=== PATIENT | female | born 1975 | race Caucasian/White ===

== ENCOUNTER 2023-02-19 05:23 | Day surgery (SDC) | payer OTHER ==
[2023-02-11 15:56] LABS: BASOPHILS # (AUTO) 0.1 X10'3 (0-0.2); EOSINOPHILS % (AUTO) 0.1 % (0-6); MONOCYTES # (AUTO) 0.5 X10'3 (0-0.9)
[2023-02-11 16:10] LABS: ALBUMIN/GLOBULIN RATIO 1.1 (1.1-1.5); ALKALINE PHOSPHATASE 109 IU/L (46-116); BLOOD UREA NITROGEN 11 MG/DL (7-18); BUN/CREATININE RATIO 13.9 (10.0-20.0); CALCIUM 9.1 MG/DL (8.5-10.1); CHLORIDE 101 MMOL/L (99-107); CREATININE 0.79 MG/DL (0.40-0.90); PRE OP ALT 18 U/L (30-65); PRE OP ANION GAP 12 (8-16); PRE OP AST 18 U/L (10-37); PRE OP BILIRUB, TOTAL 0.3 MG/DL (0.0-1.0); PRE OP GLUCOSE 151 MG/DL (70-104); PRE OP POTASSIUM 3.7 MMOL/L (3.4-5.1); PRE OP SODIUM 138 MMOL/L (135-145); TOTAL CARBON DIOXIDE 25.4 MMOL/L (24-32); TOTAL PROTEIN 7.8 G/DL (6.4-8.2); eGFR 77 ML/MIN
[2023-02-11 16:48] LABS: MEAN CORPUSCULAR HEMOGLOBIN 19.6 PG (27.0-31.0); MEAN CORPUSCULAR HGB CONC 30.6 g/dL (33.0-36.5); PRE OP HEMOGLOBIN 9.5 g/dL (12.0-16.0); RED BLOOD COUNT 4.84 X10'6 (4.20-5.60)
[2023-02-11 16:49] LABS: LYMPHOCYTES % (AUTO) 15.3 % (21-51); MEAN PLATELET VOLUME 8.5 FL (7.4-10.4); MONOCYTES % (AUTO) 4.6 % (2-12); NEUTROPHILS % (AUTO) 79.5 % (42-75); PRE OP PLATELET COUNT 428 X10'3 (140-440)
[2023-02-11 16:50] LABS: BASOPHILS % (AUTO) 0.5 % (0-1); LYMPHOCYTES # (AUTO) 1.7 X10'3 (1.1-4.8); NEUTROPHILS # (AUTO) 8.8 X10'3 (1.8-7.7)
[2023-02-11 17:38] LABS: PLATELET ESTIMATE NORMAL
[2023-02-11 17:39] LABS: HYPOCHROMASIA 1+
[2023-02-11 17:40] LABS: ANISOCYTOSIS 2+; ELLIPTOCYTES 1+; MICROCYTOSIS 2+; POIKILOCYTOSIS 1+
[2023-02-19] VITALS (25 sets, daily range): BP systolic 128–167; BP diastolic 68–103
[~2023-02-19] VITALS: Ht 167.6 cm; Wt 117.0 kg
[~2023-02-19 05:23] MED LIST: PANT-47 PO; SERT-434 PO; ringers solution, lacted 1,000 ML IV SCH
[2023-02-19] MEDS ORDERED: cefazolin 2gm/D5W 100mL 100 ML IV ONE (05:30)
[2023-02-19] MEDS ORDERED: vancomycin 1,500 MG in NS 300ml IV soln IV ONE (05:30)
[2023-02-19] MEDS ORDERED: gabapentin 300mg capsule PO ONE (05:30)
[2023-02-19] MEDS ORDERED: acetaminophen 325mg tablet PO ONE (05:30)
[2023-02-19] MEDS ORDERED: metoclopramide 5 mg/ml inj IV ONE (05:30)
[2023-02-19] MEDS ORDERED: tranexamic acid inj. 1,000 MG in normal saline IV soln 100ML IV ONE (05:30)
[2023-02-19] MEDS ORDERED: celeCOXIB 100mg capsule PO ONE (05:30)
[2023-02-19] MEDS ORDERED: famotidine 20mg tablet PO ONE (05:30)
[2023-02-19] MEDS ORDERED: oxyCODONE SR 10mg (sust. release) tab -2 tabs (20mg) PO ONE (05:30)
[2023-02-19] MEDS ORDERED: HYDROmorphone inj. 0.5 MG/0.5 ML DISP.SYRIN IV PRN (06:35)
[2023-02-19] MEDS ORDERED: diphenhydrAMINE 25mg capsule PO PRN ×2 (06:35)
[2023-02-19] MEDS ORDERED: ondansetron/PF 4mg/2ml inj IV PRN ×2 (06:35→07:30)
[2023-02-19] MEDS ORDERED: bisacodyl 10mg suppository rectal RC PRN (06:35)
[2023-02-19] MEDS ORDERED: magnesium hydroxide 30ml (MOM) UD suspension PO PRN (06:35)
[2023-02-19] MEDS ORDERED: HYDROcodone/acetaminophen 10/325mg tab PO PRN (06:35)
[2023-02-19] MEDS ORDERED: acetaminophen 325mg tablet PO PRN (06:35)
[2023-02-19] MEDS ORDERED: naloxone 0.4 mg/ml inj IV PRN (06:35)
[2023-02-19] MEDS ORDERED: ROPIVAcaine 0.5% (5mg/ml) 30ml vial ONE (06:46)
[2023-02-19] MEDS ORDERED: cloNIDine hcl/PF 100mcg/ml inj ONE (06:49)
[2023-02-19] MEDS ORDERED: epiNEPHrine 1 mg/ml inj ONE (06:49)
[2023-02-19] MEDS ORDERED: ketorolac trometh. 30mg/ml inj. ONE (06:49)
--- NOTE | 2023-02-19 07:05 | NUR ---
PATIENT HAS SEEN VIDEO NO OINTMENT PEDAL PULSES MARKED CSM INTACT
[2023-02-19] MEDS ORDERED: vancomycin 1,000mg inj ONE (07:14)
[2023-02-19] MEDS ORDERED: fentaNYL/PF 50MCG/1 ML 2ML syringe ONE (07:17)
[2023-02-19] MEDS ORDERED: MIDAZolam 1 MG/ML 5ML VIAL ONE (07:18)
[2023-02-19] MEDS ORDERED: ringers solution, lacted 1,000 ML IV SCH (07:30)
[2023-02-19] MEDS ORDERED: ROPIVAcaine 0.2% (10 MG/5 ML) BOLUS INJECTION ADDCANAL PRN (07:30)
[2023-02-19] MEDS ORDERED: meperidine/PF 25mg/ml syringe IV PRN ×3 (07:30)
[2023-02-19] MEDS ORDERED: proCHLORperazine 10 MG/2 ml inj IV PRN (07:30)
[2023-02-19] MEDS ORDERED: morphine 2 MG/ML inj. syringe IV PRN (07:30)
[2023-02-19] MEDS ORDERED: ROPIVAcaine 0.2%/PF PUMP/bolus 545 ML ADDCANAL SCH (07:30)
[2023-02-19] MEDS ORDERED: morphine 4 MG/ML inj SYRINge IV PRN (07:30)
[2023-02-19] MEDS ORDERED: ceFAZolin/D5W- 1GM premix 50 ML IV SCH (08:00)
[2023-02-19] MEDS ORDERED: propofol inj 20 ML IV ONE ×2 (08:19→09:08)
[2023-02-19] MEDS ORDERED: LIDOcaine 1%/PF 5ML 10 MG/ML VIAL ONE (08:19)
[2023-02-19] MEDS ORDERED: epiNEPHrine 1 MG/ML 1 ml ampule **BRONCH ONLY SQ ONE (08:24)
[2023-02-19] MEDS ORDERED: ketorolac trometh. 30mg/ml inj. IV ONE (08:27)
[2023-02-19] MEDS ORDERED: cloNIDine hcl/PF 100mcg/ml inj EP ONE (08:27)
[2023-02-19] MEDS ORDERED: ROPIVAcaine 0.5% (5mg/ml) 30ml vial IJ ONE (08:27)
[2023-02-19] MEDS ORDERED: diphenhydrAMINE 50 mg/ml inj ONE (09:08)
--- NOTE | 2023-02-19 09:23 | NUR ---
Received from OR via , accompanied by Anesthesiologist JEANE AND OR NURSE and report given by Anesthesiolgist. PT IS DROWSY YET ABLE TO FOLLOW VERBAL COMMANDS. PWDR PACK SLING NOT IN PLACE. MICHAEL DRESSING IN PLACE WITH CASSETTE. OR NURSE NOTIFIED. 20G TO LT AC. PT WITH SHIVERS; DEMEROL GIVEN. VSS Addendum: 02/19/23 at 1045 by Neva Winters RN Amended: Links added.
--- NOTE | 2023-02-19 11:42 | NUR ---
Received patient to room 4023B escorted by x2 staff and spouse. Patient alert and oriented c/o pain to right knee. Right knee koki dressing CDI, powder cold pack in place with right knee wrap. SCD's on. Oriented room and call light. Bed low and locked, call light within reach.
--- NOTE | 2023-02-19 11:43 | NUR ---
PATIENT TAKEN TO ORTHO FLOOR ROOM WITH ALL BELONGINGS AND HOOKED UP TO ALL MONITORS IN ROOM AND REPORT GIVEN TO RN WHO HAS TAKEN OVER PATIENT CARE. FAMILY AT BEDSIDE Addendum: 02/19/23 at 1157 by Neva Winters RN Amended: Links added.
[2023-02-19] MEDS: HYDROmorphone 1 mg/ml syringe IV PRN ×3 (11:52→22:12)
[2023-02-19] MEDS ORDERED: tranexamic acid inj. 1,000 MG in normal saline 100ml IV soln 90 ML IV ONE (12:00)
[2023-02-19] MEDS: HYDROcodone/acetaminophen 10/325mg tab PO PRN (13:58)
[2023-02-19] MEDS ORDERED: ceFAZolin inj. 3,000 MG in normal saline 100ml IV soln 100 ML IV SCH (16:00)
[2023-02-19] MEDS: ceFAZolin inj. 3,000 MG in normal saline 100ml IV soln 100 ML IV SCH ×2 (16:05→23:05)
--- NOTE | 2023-02-19 18:00 | NUR ---
Patient in room ORTHO 4023. I have received report from REENA Curiel and had the opportunity to ask questions and assume patient care.
--- NOTE | 2023-02-19 18:07 | NUR ---
Problems reprioritized. Patient report given, questions answered & plan of care reviewed with REENA Good.
[2023-02-19] MEDS: potassium cl 20mEq in 1/2 NS 1,000 ML IV SCH ×2 (19:50→20:50)
[2023-02-19] MEDS ORDERED: vancomycin inj 1,750 MG in normal saline 500ml IV soln 350 ML IV ONE (20:00)
[2023-02-19] MEDS: gabapentin 300mg capsule PO SCH (20:45)
[2023-02-19] MEDS: ascorbic acid 500mg tablet PO SCH (20:46)
[2023-02-19] MEDS ORDERED: sennosides 8.6mg tablet PO SCH (21:00)
[2023-02-19] MEDS ORDERED: pantoprazole 40mg Tablet.DR PO SCH (21:00)
[2023-02-20] MEDS: HYDROcodone/acetaminophen 10/325mg tab PO PRN ×3 (00:51→10:12)
[2023-02-20 02:00] VITALS: BP 122/60
[2023-02-20] MEDS: potassium cl 20mEq in 1/2 NS 1,000 ML IV SCH ×2 (03:00→11:00)
[2023-02-20 06:00] VITALS: BP 129/56
--- NOTE | 2023-02-20 06:30 | NUR ---
Problems reprioritized. Patient report given, questions answered & plan of care reviewed with Last Mata.
--- NOTE | 2023-02-20 06:30 | NUR ---
Patient in room ORTHO 4023. I have received report from Latisha VALLES and had the opportunity to ask questions and assume patient care.
[2023-02-20 07:38] LABS: BASOPHILS # (AUTO) 0.1 X10'3 (0-0.2); BASOPHILS % (AUTO) 0.6 % (0-1); EOSINOPHILS % (AUTO) 0.4 % (0-6); HEMATOCRIT 28.2 % (35.0-45.0); HEMOGLOBIN 8.6 g/dl (12.0-16.0); LYMPHOCYTES # (AUTO) 2.8 X10'3 (1.1-4.8); LYMPHOCYTES % (AUTO) 28.2 % (21-51); MEAN CORPUSCULAR HEMOGLOBIN 20.3 PG (27.0-31.0); MEAN CORPUSCULAR HGB CONC 30.6 g/dL (33.0-36.5); MEAN CORPUSCULAR VOLUME 66.3 FL (78-98); MEAN PLATELET VOLUME 8.6 FL (7.4-10.4); MONOCYTES # (AUTO) 0.8 X10'3 (0-0.9); MONOCYTES % (AUTO) 8.3 % (2-12); NEUTROPHILS # (AUTO) 6.3 X10'3 (1.8-7.7); NEUTROPHILS % (AUTO) 62.5 % (42-75); PLATELET COUNT 308 X10'3 (140-440); RED BLOOD COUNT 4.25 X10'6 (4.20-5.60); RED CELL DISTRIBUTION WIDTH 18.8 % (11.5-14.5); WHITE BLOOD COUNT 10.1 X10'3 (4.5-11.0)
[2023-02-20 07:47] LABS: ANION GAP 5 (8-16); CHLORIDE 104 MMOL/L (99-107); POTASSIUM 3.6 MMOL/L (3.5-5.1); SODIUM 138 MMOL/L (135-145); TOTAL CARBON DIOXIDE 28.7 MMOL/L (24-32)
[2023-02-20] MEDS: gabapentin 300mg capsule PO SCH (07:47)
[2023-02-20] MEDS: ascorbic acid 500mg tablet PO SCH (07:47)
[2023-02-20] MEDS ORDERED: cefazolin 2gm/D5W 100mL 100 ML IV SCH (08:00)
[2023-02-20] MEDS ORDERED: sertraline 50mg tablet PO SCH (08:00)
[2023-02-20] MEDS ORDERED: multivitamins, therapeutics tablet PO SCH (08:00)
[2023-02-20] MEDS ORDERED: aspirin 325mg tablet PO SCH (08:30)
[2023-02-20 10:00] VITALS: BP 155/80
--- NOTE | 2023-02-20 11:04 | NUR ---
Per EMR pt s/p right TKA, discharging at this time. Written protein education with ONS coupons and RD contact information mailed to patient's home address found in EMR. Will remain available. Addendum: 02/20/23 at [address] Amended: Links added.
--- NOTE | 2023-02-20 11:45 | NUR ---
Pt dc to home via private vehicle accompanied by and aunt. Pt VSS, alert, oriented, and appropriate. Pt and both verbally agreeable and understanding to all DC instructions and educations provided, specifically regarding MICHAEL dressing and ON-Q pump. PIV dc with no complications, no s/sx of infection or infiltration noted. All belongings accounted for at time of dc.
--- NOTE | 2023-02-20 13:45 | NUR ---
TRAFFIC TECHNICIAN documentation: I have reviewed and agree with all interventions, assessments performed and documented by Esperanza Fernandes LVN.
[2023-02-20] MEDS ORDERED: celeCOXIB 100mg capsule PO SCH (20:00)
== END 2023-02-20 11:45 | disposition home or self-care (01) ==
LOC: PAS 05:23 → ORTHO 4S 12:00 → UNDOADMIN 12:00 → ORTHO 4S 02-20 10:49 → PAS 02-20 11:45
PROVIDERS: ATTEND Orthopaedic Surgery
DX: M17.11 Unilateral primary osteoarthritis, right knee (principal); M21.161 Varus deformity, not elsewhere classified, right knee; F41.9 Anxiety disorder, unspecified; I10 Essential (primary) hypertension; K21.9 Gastro-esophageal reflux disease without esophagitis; E66.01 Morbid (severe) obesity due to excess calories; Z68.39 Body mass index [BMI] 39.0-39.9, adult; F42.9 Obsessive-compulsive disorder, unspecified; F43.10 Post-traumatic stress disorder, unspecified; G89.18 Other acute postprocedural pain; F12.90 Cannabis use, unspecified, uncomplicated; Z72.89 Other problems related to lifestyle; Z87.891 Personal history of nicotine dependence; Z79.899 Other long term (current) drug therapy
CPT/HCPCS: 27447; 36415; 64448; 71046; 73560; 80051; 80053; 82948; 85025; 86885; 86900; 86901; 87081; 93005; 97110; 97116; 97161; C1713; C1776; J0171; J0690; J0735; J1170; J1200; J1885; J2175; J2250; J2270; J2704; J2765; J2795; J3010; J3370; J3480; J3490; J7030; J7040; J7120; Z7506; Z7508; Z7512; 85008; 97530; A4215; A6446; A6449; A7000; G0378